=== PATIENT | female | born 1940 ===

== ENCOUNTER 2020-04-30 11:05 | Outpatient (CLI) | payer MEDICARE, SELFPAY ==
[2020-04-30 11:39] LABS: Basophils Absolute Auto 0.1 K/mm3 (0.0-0.1); Basophils Percent Auto 0.4 % (0.2-1.2); Eosinophils Absolute Auto 0.1 K/mm3 (0-0.3); Eosinophils Percent Auto 0.5 % (0-4.4); Hematocrit 41.7 % (37.0-47.0); Immature Granulocyte Percent A 0.6 % (0-0.5); Lymphocytes Absolute Auto 1.68 K/mm3 (0.9-3.2); Mean Corpuscular HGB Conc 33.6 g/dl (32-36); Mean Corpuscular Volume 89.5 fl (80-100); Mean Platelet Volume 9.1 fl (7.4-10.4); Monocytes Absolute Auto 1.1 K/mm3 (0.1-0.6); Monocytes Percent Auto 6.6 % (2.6-8.5); Neutrophils Absolute Auto 13.7 K/mm3 (1.3-6.7); Neutrophils Percent Auto 81.9 % (45.5-73.1); Platelet Count Result 393 k/mm3 (150-375); Red Blood Count 4.66 M/mm3 (4.2-5.4); White Blood Count 16.7 K/mm3 (4.5-10.0)
[2020-04-30 12:40] LABS: Alanine Aminotransferase 18 U/L (4-35); Albumin Level 4.4 g/dL (3.5-5.1); Alkaline Phosphatase 90 U/L (38-126); Anion Gap 15.9 mmol/L (7-16); Aspartate Amino Transferase 24 U/L (14-36); Bilirubin,Total 0.6 mg/dL (0.2-1.3); Blood Urea Nitrogen 23 mg/dL (7-17); CRP 2.8 mg/dL (<1.0); Calcium 9.7 mg/dL (8.4-10.2); Carbon Dioxide 25 mmol/L (22-30); Chloride 93 mmol/L (98-107); Estimated Glomerular Filt Rate > 60; Glucose 114 mg/dL (65-105); Potassium 3.9 mmol/L (3.4-5.0); Sodium 130 mmol/L (137-145)
[2020-04-30 12:57] LABS: Erythrocyte Sedimentation Rate 24 mm/hr (0-20)
== END 2020-04-30 11:06 | disposition home or self-care (01) ==
PROVIDERS: PCP Internal Medicine; Visit Provider Internal Medicine Hematology & Oncology
DX: D72.829 Elevated white blood cell count, unspecified (principal)
CPT/HCPCS: 36415; 80053; 85025; 85652; 86140; 88184; 88185

== ENCOUNTER 2020-12-13 10:05 | Outpatient (CLI) | payer MEDICARE, SELFPAY ==
[2020-12-13 10:19] LABS: Basophils Absolute Auto 0.1 K/mm3 (0.0-0.1); Basophils Percent Auto 0.7 % (0.2-1.2); Eosinophils Absolute Auto 0.2 K/mm3 (0-0.3); Eosinophils Percent Auto 1.6 % (0-4.4); Hemoglobin 13.8 g/dL (12.0-15.0); Immature Granulocyte Absolute 0.04 K/mm3 (0.00-0.031); Immature Granulocyte Percent A 0.4 % (0-0.5); Lymphocytes Absolute Auto 1.91 K/mm3 (0.9-3.2); Lymphocytes Percent Auto 18.2 % (18.3-44.2); Mean Corpuscular HGB Conc 32.9 g/dl (32-36); Mean Corpuscular Hemoglobin 29.9 pg (26-34); Mean Corpuscular Volume 91.1 fl (80-100); Mean Platelet Volume 9.2 fl (7.4-10.4); Monocytes Absolute Auto 0.8 K/mm3 (0.1-0.6); Monocytes Percent Auto 7.3 % (2.6-8.5); Neutrophils Absolute Auto 7.5 K/mm3 (1.3-6.7); Neutrophils Percent Auto 71.8 % (45.5-73.1); Platelet Count Result 341 k/mm3 (150-375); Red Blood Count 4.61 M/mm3 (4.2-5.4); Red Cell Distribution Width 14.9 % (11.5-14.5); White Blood Count 10.5 K/mm3 (4.5-10.0)
== END 2020-12-13 10:06 | disposition home or self-care (01) ==
LOC: ANHLAB 10:07
PROVIDERS: PCP Internal Medicine; Visit Provider Internal Medicine Hematology & Oncology
DX: D72.829 Elevated white blood cell count, unspecified (principal)
CPT/HCPCS: 36415; 85025

== ENCOUNTER 2021-12-10 10:01 | Outpatient (CLI) | payer MEDICARE, SELFPAY ==
[2021-12-10 10:24] LABS: Basophils Absolute Auto 0.1 K/mm3 (0.0-0.1); Basophils Percent Auto 0.4 % (0.2-1.2); Eosinophils Absolute Auto 0.2 K/mm3 (0-0.3); Hematocrit 43.3 % (37.0-47.0); Immature Granulocyte Absolute 0.08 K/mm3 (0.00-0.031); Immature Granulocyte Percent A 0.5 % (0-0.5); Lymphocytes Absolute Auto 1.26 K/mm3 (0.9-3.2); Lymphocytes Percent Auto 7.5 % (18.3-44.2); Mean Corpuscular HGB Conc 32.3 g/dl (32-36); Mean Corpuscular Hemoglobin 29.9 pg (26-34); Mean Corpuscular Volume 92.3 fl (80-100); Monocytes Absolute Auto 1.2 K/mm3 (0.1-0.6); Neutrophils Percent Auto 83.6 % (45.5-73.1); Platelet Count Result 375 k/mm3 (150-375); Red Blood Count 4.69 M/mm3 (4.2-5.4); Red Cell Distribution Width 14.2 % (11.5-14.5); White Blood Count 16.7 K/mm3 (4.5-10.0)
[2021-12-10 10:28] LABS: Blood Urea Nitrogen 16 mg/dL (8-26); Carbon Dioxide 24 mmol/L (22-30); Chloride 93 mmol/L (98-109); Estimated Glomerular Filt Rate 60; Glucose 109 mg/dL (70-105); Potassium 3.6 mmol/L (3.5-4.9); Sodium 131 mmol/L (138-146)
[2021-12-10 14:31] LABS: CRP 2.5 mg/dL (<1.0)
[2021-12-10 16:15] LABS: Erythrocyte Sedimentation Rate 17 mm/hr (0-20)
== END 2021-12-10 10:02 | disposition home or self-care (01) ==
PROVIDERS: PCP Internal Medicine; Visit Provider Internal Medicine Hematology & Oncology
DX: D72.829 Elevated white blood cell count, unspecified (principal)
CPT/HCPCS: 36415; 80048; 85025; 85652; 86140

== ENCOUNTER 2022-12-10 09:49 | Outpatient (CLI) | payer MEDICARE, SELFPAY ==
[2022-12-10 10:06] LABS: Basophils Absolute Auto 0.1 K/mm3 (0.0-0.1); Basophils Percent Auto 0.4 % (0.2-1.2); Eosinophils Absolute Auto 0.1 K/mm3 (0-0.3); Hemoglobin 12.3 g/dL (12.0-15.0); Immature Granulocyte Absolute 0.05 K/mm3 (0.00-0.031); Immature Granulocyte Percent A 0.4 % (0-0.5); Lymphocytes Absolute Auto 1.83 K/mm3 (0.9-3.2); Lymphocytes Percent Auto 14.3 % (18.3-44.2); Mean Corpuscular HGB Conc 31.5 g/dl (32-36); Mean Corpuscular Hemoglobin 24.8 pg (26-34); Mean Corpuscular Volume 78.8 fl (80-100); Mean Platelet Volume 9.2 fl (7.4-10.4); Monocytes Absolute Auto 0.8 K/mm3 (0.1-0.6); Neutrophils Absolute Auto 9.9 K/mm3 (1.3-6.7); Neutrophils Percent Auto 77.9 % (45.5-73.1); Platelet Count Result 402 k/mm3 (150-375); Red Blood Count 4.95 M/mm3 (4.2-5.4); Red Cell Distribution Width 23.8 % (11.5-14.5); White Blood Count 12.8 K/mm3 (4.5-10.0)
[2022-12-10 10:11] LABS: Blood Urea Nitrogen 16 mg/dL (8-26); Carbon Dioxide 31 mmol/L (22-30); Chloride 100 mmol/L (98-109); Estimated Glomerular Filt Rate 39; Glucose 104 mg/dL (70-105); Ionized Calcium (POC) 1.23 mmol/L (1.11-1.31); Potassium 4.5 mmol/L (3.5-4.9); Sodium 140 mmol/L (138-146)
[2022-12-10 13:42] LABS: Alanine Aminotransferase 10 U/L (6-35); Albumin Level 4.4 g/dL (3.5-5.1); Alkaline Phosphatase 95 U/L (38-126); Anion Gap 6 mmol/L (8-16); Aspartate Amino Transferase 32 U/L (14-36); Bilirubin,Total 0.6 mg/dL (0.2-1.3); Blood Urea Nitrogen 16 mg/dL (7-17); CRP 0.8 mg/dL (<1.0); Calcium 9.8 mg/dL (8.4-10.2); Carbon Dioxide 31 mmol/L (22-30); Chloride 99 mmol/L (98-107); Estimated Glomerular Filt Rate 48; Glucose 103 mg/dL (65-110); Potassium 4.6 mmol/L (3.4-5.0); Sodium 136 mmol/L (137-145)
[2022-12-10 14:02] LABS: Erythrocyte Sedimentation Rate 20 mm/hr (0-20)
== END 2022-12-10 09:50 | disposition home or self-care (01) ==
LOC: ANHLAB 09:52
PROVIDERS: PCP Family Medicine; Visit Provider Internal Medicine Hematology & Oncology
DX: D72.829 Elevated white blood cell count, unspecified (principal)
CPT/HCPCS: 36415; 80047; 80053; 85025; 85652; 86140

== ENCOUNTER 2023-12-11 10:07 | Outpatient (CLI) | payer MEDICARE, SELFPAY ==
[2023-12-11 10:24] LABS: Basophils Absolute Auto 0.1 K/mm3 (0.0-0.1); Basophils Percent Auto 0.8 % (0.2-1.2); Eosinophils Absolute Auto 0.3 K/mm3 (0-0.3); Eosinophils Percent Auto 2.3 % (0-4.4); Hematocrit 45.2 % (37.0-47.0); Immature Granulocyte Absolute 0.09 K/mm3 (0.00-0.031); Immature Granulocyte Percent A 0.6 % (0-0.5); Lymphocytes Absolute Auto 1.95 K/mm3 (0.9-3.2); Lymphocytes Percent Auto 13.4 % (18.3-44.2); Mean Corpuscular HGB Conc 33.2 g/dl (32-36); Mean Corpuscular Hemoglobin 30.7 pg (26-34); Mean Corpuscular Volume 92.4 fl (80-100); Mean Platelet Volume 9.2 fl (7.4-10.4); Monocytes Absolute Auto 0.8 K/mm3 (0.1-0.6); Monocytes Percent Auto 5.4 % (2.6-8.5); Neutrophils Absolute Auto 11.3 K/mm3 (1.3-6.7); Neutrophils Percent Auto 77.5 % (45.5-73.1); Platelet Count Result 435 k/mm3 (150-375); Red Blood Count 4.89 M/mm3 (4.2-5.4); Red Cell Distribution Width 14.7 % (11.5-14.5); White Blood Count 14.5 K/mm3 (4.5-10.0)
[2023-12-11 10:37] LABS: Blood Urea Nitrogen 16 mg/dL (8-26); Carbon Dioxide 27 mmol/L (22-30); Chloride 103 mmol/L (98-109); Estimated Glomerular Filt Rate 53; Potassium 4.3 mmol/L (3.5-4.9); Sodium 143 mmol/L (138-146)
[2023-12-11 10:38] LABS: Glucose 114 mg/dL (70-105); Ionized Calcium (POC) 1.22 mmol/L (1.11-1.31)
[2023-12-11 15:20] LABS: Alanine Aminotransferase 10 U/L (6-35); Albumin Level 4.1 g/dL (3.5-5.1); Alkaline Phosphatase 93 U/L (38-126); Anion Gap 7 mmol/L (8-16); Aspartate Amino Transferase 46 U/L (14-36); Bilirubin,Total 0.7 mg/dL (0.2-1.3); Blood Urea Nitrogen 16 mg/dL (7-17); Calcium 9.6 mg/dL (8.4-10.2); Carbon Dioxide 27 mmol/L (22-30); Chloride 106 mmol/L (98-107); Estimated Glomerular Filt Rate 53; Glucose 104 mg/dL (65-110); Potassium 4.4 mmol/L (3.4-5.0); Sodium 140 mmol/L (137-145)
== END 2023-12-11 10:08 | disposition home or self-care (01) ==
LOC: ANHLAB 10:10
PROVIDERS: PCP Family Medicine; Visit Provider Internal Medicine Hematology & Oncology
DX: D72.829 Elevated white blood cell count, unspecified (principal)
CPT/HCPCS: 36415; 80047; 80053; 85025

== ENCOUNTER 2024-12-12 09:37 | Outpatient (CLI) | payer MEDICARE, SELFPAY ==
[2024-12-12 09:55] LABS: Basophils Percent Auto 0.4 % (0.2-1.2); Eosinophils Absolute Auto 0.2 K/mm3 (0-0.3); Eosinophils Percent Auto 2.4 % (0-4.4); Hematocrit 42.8 % (37.0-47.0); Hemoglobin 13.8 g/dL (12.0-15.0); Immature Granulocyte Absolute 0.05 K/mm3 (0.00-0.031); Immature Granulocyte Percent A 0.5 % (0-0.5); Lymphocytes Percent Auto 17.2 % (18.3-44.2); Mean Corpuscular HGB Conc 32.2 g/dl (32-36); Mean Corpuscular Volume 86.8 fl (80-100); Mean Platelet Volume 9.6 fl (7.4-10.4); Monocytes Absolute Auto 0.8 K/mm3 (0.1-0.6); Monocytes Percent Auto 8.1 % (2.6-8.5); Neutrophils Absolute Auto 6.6 K/mm3 (1.3-6.7); Neutrophils Percent Auto 71.4 % (45.5-73.1); Platelet Count Result 358 k/mm3 (150-375); Red Blood Count 4.93 M/mm3 (4.2-5.4); Red Cell Distribution Width 16.1 % (11.5-14.5); White Blood Count 9.3 K/mm3 (4.5-10.0)
[2024-12-12 10:05] LABS: Blood Urea Nitrogen 22 mg/dL (8-26); Carbon Dioxide 28 mmol/L (22-30); Chloride 100 mmol/L (98-109); Estimated Glomerular Filt Rate 53; Glucose 94 mg/dL (70-105); Ionized Calcium (POC) 1.12 mmol/L (1.11-1.31); Potassium 3.6 mmol/L (3.5-4.9); Sodium 140 mmol/L (138-146)
--- OUTSIDE RECORDS SUMMARY | 2024-12-12 10:55 | XMS_ITS | Clinical Summary ---
Author Organization [address] Address [address] [place] [phone] Care Team Providers Care Receptionist Clerk Name Role Phone Suresh Garcia MD Primary Care Provider [phone] [phone] Allergies Active Allergy Reactions Criticality Noted Date Comments Atorvastatin Unknown,Muscle pain Medium 03/20/2016 Oxycodone Dizziness Low 05/26/2022 Rosuvastatin Unknown,Muscle pain Medium 03/20/2016 Sulfamethoxazole-Trimet hoprim Other (See comments) Low 02/09/2022 Patient said she felt funny when she took it. Medications irbesartan (AVAPRO) 300 mg tablet Take 300 mg by mouth daily 1 Active metoprolol tartrate (LOPRESSOR) 50 mg immediate release tablet Take 50 mg by mouth 2 (two) times a day 1 Active ezetimibe (ZETIA) 10 mg tablet Take 10 mg by mouth daily [address] (PROTONIX) 40 mg EC tablet Take 40 mg by mouth daily 1 Active furosemide (LASIX) 40 mg tablet Take 40 mg by mouth daily 1 Active cetirizine (ZyrTEC) 10 mg tablet Take 5 mg by mouth 2 (two) times a day Active butalbital-acet aminophen-caffe ine (FIORICET) 50-300-40 mg per capsule Take 1 capsule by mouth every 6 (six) hours as needed for headaches Active azelastine (ASTELIN) 137 mcg (0.1 %) nasal sprayIndication s:Seasonal Allergic Rhinitis Administer 2 sprays into each nostril 2 (two) times a day Use in each nostril as directed 30 mL 3 2 Active clopidogreL (PLAVIX) 75 mg tablet Take 75 mg by mouth daily 2 Active multivitamin-mi nerals-lutein tablet Take 1 tablet by mouth daily Active cyanocobalamin (Vitamin B-12) 500 mcg tabletIndicatio ns:Prevention of Vitamin B12 Deficiency Take 500 mcg by mouth daily Active cholecalciferol (VITAMIN D-3) 2000 unit capsule Take 2,000 Units by mouth daily Active amLODIPine (NORVASC) 10 mg tablet Take 1 tablet (10 mg total) by mouth daily 30 tablet 11 2 Active acetaminophen 500 mg capsule Take 2 capsules (1,000 mg total) by mouth every 8 (eight) hours 30 tablet 2 Active lidocaine (LIDODERM) 5 % Place 1 patch on the skin daily Remove & discard patch within 12 hours or as directed by MD. 30 patch 2 Active traMADoL (ULTRAM) 50 mg tablet Take 1 tablet (50 mg total) by mouth daily as needed for pain (prior to wound vac change) 5 tablet 2 Active Active Problems Problem Noted Date Diagnosed Date Cellulitis of left lower extremity 06/10/2022 Assessment & Plan (06/20/2022 12:34 PM CDT): P/w left leg wound. See media tab. No pain or tenderness noted. Mild bleeding noted from underlying hematoma. CT with findings of hematoma with possible superinfection. Leukocytosis of 13.1 on admit. No concern for left knee septic joint on joint studies. - surgery - hematoma evacuation/I&D on 06/12/2022, 06/15 - wound vac in place - Consulted wound care, managing wound vac, will take down w/ WTD dressing prior to d/c to SNF 06/20, vac to be restarted upon arrival to SNF - tramadol PRN for wound vac changes - pansensitive proteus and likely anaerobic gpc/gpb - CTX/flagyl-->augmentin per ID to complet 4 week course on 07/09 - darcy parapsilosis, will d/w ID - Started fluconazole 400mg qdaily (QTC 427) to complete 4 week course on 07/09 Hyponatremia 06/10/2022 Assessment & Plan (06/20/2022 12:35 PM CDT): Na of 125 on admission. History of sodium in 120s since April 2022. Likely combination of HCTZ use and possibly volume overload? Also hypochloremic. Improved since stopping HCTZ, but then downtrending starting 06/18, possibly 2/2 hypervolemia while off lasix - tsh, am cortisol is fine - will resume lasix 40mg daily- Na improved on lasix - monitor daily BMP Falls 06/10/2022 Assessment & Plan (06/16/2022 4:57 PM CDT): H/o mechanical falls. Had 3 falls in 3 months. Reports of balance issues, a part of it is likely from hyponatremia and LE edema. Most recent fall c/b knee wound now infected limiting her mobility. - Daughter says she really noticed a change 6-8 months ago, when her mother developed a shuffling gait and began to fall more frequently. She has been increasingly sedentary since then, spending most of her time in a recliner. - Has received home PT to work on balance since February 2021 - Neurology appointment scheduled for October - PT/OT: amenable to placement on d/w patient and daughter. - stop alprazolam Diastolic CHF 06/10/2022 Assessment & Plan (06/19/2022 4:36 PM CDT): Not in exacerbation. Takes lasix for B/L KYLER. Restarted lasix 06/19 COVID-19 06/10/2022 Assessment & Plan (06/11/2022 12:56 PM CDT): Tested positive on 06/10. Covid vaccinated and boosted x 1. Recently had COVID in late March (had mild symptoms). Currently is asymptomatic. - No therapies indicated since she is asymptomatic and is likely recovered. - Infection prevention took off precautions on 06/11, changed status to COVID recovered Lower extremity edema 06/10/2022 Assessment & Plan (06/19/2022 4:39 PM CDT): Chronic KYLER but has been sedentary for the past couple of weeks and is at risk of DVT. Previously cardiology concerned about lymphedema tarda. - Has been on lasix/hctz together since 2018. - bilateral LE duplex negative - Encourage leg elevation - Consult sent to lymphedema therapy team - restarted lasix 06/19 - noted RLE erythema, most likely 2/2 chronic venous stasis changes, already on broad abx coverage for LLE wound, so cellulitis is unlikely, will CTM Left shoulder pain 06/10/2022 Assessment & Plan (06/11/2022 12:58 PM CDT): Initially noticed when working with PT. Decreased ROM from pain. No loss of strength. 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 Statin intolerant. Gait abnormality 01/22/2022 Non-seasonal allergic rhinitis 03/05/2021 Balance problem 02/11/2021 Leukocytosis 05/16/2020 Assessment & Plan (06/19/2022 4:38 PM CDT): WBC 13-->16-->17 in setting of open wound on abx, likely 2/2 ongoing inflammation, no new sxs per pt - urinalysis not c/w infection 06/19 - monitor with daily CBC LUCI (obstructive sleep apnea) 10/29/2017 Assessment & Plan (06/10/2022 7:21 PM CDT): Inconsistently uses CPAP. SOB (shortness of breath) 04/14/2017 Dyslipidemia 04/13/2017 Excessive daytime sleepiness 04/13/2017 Chronic fatigue 03/16/2017 Edema 03/20/2016 Essential (primary) hypertension 03/20/2016 Assessment & Plan (06/10/2022 8:23 PM CDT): Takes amlodipine, hctz, irebesartan and metoprolol. Hold hctz for hyponatremia. - Continue amlodipine, irbesartan and metoprolol Hyperlipidemia, mixed 03/20/2016 Assessment & Plan (06/10/2022 7:23 PM CDT): Statin intolerant. Continue ezetimibe. Morbid obesity due to excess calories 03/20/2016 Immunizations Immunization Administration Dates Next Due Influenza, Unspecified 09/03/2018 Pfizer SARS-CoV-2 Monovalent Vaccination (12+ Yrs) PURPLE 07/25/2021,01/03/2021,12/13/2020 Tdap 02/09/2022 Surgical History Surgery Date Site/Laterality Comments SECTION TONSILLECTOMY CHOLECYSTECTOMY COLONOSCOPY CYST REMOVAL CARDIAC CATHETERIZATION ACHILLES TENDON REPAIR JOINT REPLACEMENT Right [place] ARTHRP KNE CONDYLE&PLATU MEDIAL&LAT COMPARTMENTS Left Medical History Medical History Date Comments Allergic rhinitis Cataract Hypertension HL (hearing loss) Social History Tobacco Use Types Packs/Day Years Used Date Smoking Tobacco: Never Smokeless Tobacco: Never Tobacco Cessation:Counseling Given: Not Answered AUDIT-C Answer Date Recorded Q1: How often do you have a drink containing alcohol? Never 06/15/2022 Q2: How many drinks containi ng alcohol do you have on a typical day when you are drinking? Patient does not drink Q3: How often do you have si x or more drinks on one occasion? Never 06/15/2022 PHQ-2 Answer Date Recorded PHQ-2 Total Score (If total score is 3 or more points, staff should administer the PHQ-9) 0 06/10/2022 Comments No Sex and Gender Information Value Date Recorded Sex Assigned at Not on file Legal Sex Female 8:21 AM CDT Gender Identity Not on file Sexual Orientation Not on file Obstetrics History Last Filed Vital Signs Vital Sign Reading Time Taken Comments Blood Pressure 131/56 06/20/2022 1:00 PM CDT Pulse 88 06/20/2022 1:00 PM CDT Temperature 36.4 C (97.6 F) 06/20/2022 1:00 PM CDT Respiratory Rate 18 06/20/2022 1:00 PM CDT Oxygen Saturation 95% 06/20/2022 1:00 PM CDT Inhaled Oxygen Concentration - - Weight 101.3 kg (223 lb 6.4 oz) 06/20/2022 6:00 AM CDT Height 154.9 cm (5' 0.98 ) 06/12/2022 1 2:44 PM CDT Body Mass Index 42.23 06/12/2022 12:44 PM CDT Plan of Treatment Health Maintenance Due Date Last Done Comments Osteoporosis Screening-Bone Density Scan 1940 Hepatitis B Screening 1958 Pneumococcal vaccine 65+ (1 of 1 - PCV) 1990 Zoster Vaccine (1 of 2) 1990 Well Visit 65+ 2005 Depression Screening 06/10/2023 06/10/2022, 06/10/20 22 Fall Risk Assessment 06/20/2023 06/20/2022 Covid-19 Vaccine ( season) 2024 07/25/2021, 01/03/2021, 12/13/2020 Influenza Vaccine (#1) 2024 09/03/2018 DTaP/Tdap/Td Vaccine (2 - Td or Tdap) 02/10/203205/2022 Insurance MEDICARE [facility] Member Subscriber Plan / Payer (Ef fective 2020-Present) Name:Lauro Dobson Relation to Subscriber:Self Name:Lauro Dobson Payer ID:[id number] Group ID:Not on file Type:COMMERCIAL Address: [address] [place] [id number] [facility] MEDICARE Advance Directives For more information, please contact: [phone] * Full Code (Latest Code Status on File) Date Activated Date Inactivated Comments 06/10/2022 8:14 PM 06/20/2022 6:37 PM Care Teams Receptionist Clerk Relationship Specialty Start Date End Date Suresh Garcia MD [address] [place], [place] [id number] PCP - General Family Medicine 06/10/22
--- OUTSIDE RECORDS SUMMARY | 2024-12-12 10:55 | XMS_ITS | Clinical Summary ---
Author Organization [facility] Brionna Mccracken Address [address] [facility] [place] [address] Care Team Providers Care Supervisor Cartography Name Role Phone Suresh Garcia MD Primary Care Provider [phone] Allergies Active Allergy Reactions Criticality Noted Date Comments Atorvastatin Unknown,Muscle Pain Low 03/20/2016 Rosuvastatin Unknown,Muscle Pain Low 03/20/2016 Medications amLODIPine (NORVASC) 5 mg tablet Take 5 mg by mouth daily. Active metoprolol tartrate (LOPRESSOR) 50 mg tablet Take 50 mg by mouth 2 times daily. Active ezetimibe (ZETIA) 10 mg tablet Take 10 mg by mouth daily. Active pantoprazole (PROTONIX) 40 mg Tablet, Delayed Release (E.C.) Take 40 mg by mouth daily. Active furosemide (LASIX) 40 mg tablet Take 40 mg by mouth daily. Active cetirizine (ZyrTEC) 10 mg tablet Take 10 mg by mouth daily. Active multivitamin (DAILY-BASILIO) tablet Take 1 Tablet by mouth daily. Active aspirin (ECOTRIN EC) 81 mg Tablet, Delayed Release (E.C.) Take 81 mg by mouth daily. Active ALPRAZolam (XANAX) 0.25 mg tablet Take 0.25 mg by mouth 3 times daily as needed for Anxiety. Active cholecalciferol , Vitamin D3, 50 mcg (2,000 unit) Tablet Take by mouth. Ac tive aspirin-caffein e-butalbital (FIORINAL) 325-40-50 mg capsule 1 Active azelastine (ASTELIN) 137 mcg/actuation nasal spray Administer 2 Sprays in each nostril 2 times daily. 1 Active carbidopa-levod opa (SINEMET) 25-100 mg tablet 3 Active losartan (COZAAR) 100 mg tablet Take 100 mg by mouth daily. 2 Active Active Problems Problem Noted Date Diagnosed Date Leukocytosis (leucocytosis) 05/16/2020 Encounters Date Type Department Care Team Description 12/12/2024 10:00 AM CDT Office Visit [facility] Oncology and Hematology - [place] [address] [place] [address] Didier Noland MD 11/22/2024 External Device Data [facility] ABSTRACTION Provider, Abstract 10/27/2024 External Device Data [facility] ABSTRACTION Provider, Abstract 10/26/2024 External Device Data [facility] ABSTRACTION Provider, Abstract 10/25/2024 External Device Data [facility] ABSTRACTION Provider, Abstract from Last 3 Months Family History Medical History Relation Name Comments Cancer Brother 1 Relation Name Status Comments Brother 1 Brother 2 Father Mother Social History Tobacco Use Types Packs/Day Years Used Date Smoking Tobacco: Never Smokeless Tobacco: Never Tobacco Cessation:Counseling Given: Not Answered Alcohol Use Standard Drinks/Week Comments Never 0 (1 standard drink = 0.6 oz pur e alcohol) Comments No Sex and Gender Information Value Date Recorded Sex Assigned at Not on file Legal Sex Female 9:53 AM CDT Gender Identity Not on file Sexual Orientation Not on file Last Filed Vital Signs Vital Sign Reading Time Taken Comments Blood Pressure 132/73 12/12/2024 10:16 AM CDT Pulse 60 12/12/2024 10:14 AM CDT Temperature 35.9 C (96.7 F) 12/12/2024 10:14 AM CDT Respiratory Rate 15 12/12/2024 10:1 4 AM CDT Oxygen Saturation 96% 12/12/2024 10: 14 AM CDT Inhaled Oxygen Concentration - - Weight 68 kg (150 lb) 12/12/2024 10:14 AM CDT Patient stated that this is the correct weight Height 154.9 cm (5' 1 ) 12/10/2021 10:3 7 AM MARKING MACHINE TENDER Body Mass Index 28.34 12/10/2021 10:37 AM MARKING MACHINE TENDER Plan of Treatment Health Maintenance Due Date Last Done Comments PNEUMOCOCCAL VACCINE 50+ YEA RS (1 of 2 - PCV) 1959 Traditional Medicare (ACO) A nnual Wellness Visit 1959 ZOSTER VACCINE (1 of 2) 1990 RSV VACCINE (60+ or ) (1 - 1-dose 75+ series) 2015 COVID-19 Vaccine (5 - 2023-2 5 season) 2024 07/25/2021, 01/03/2021, 12/13/2020, Additional history exists DTAP/TDAP/TD VACCINES (3 - T d or Tdap) 04/09/2034 04/09/2024, 02/09/2022 COLORECTAL SCREENING Discontinued 07/05/2022 Colorectal Cancer Screening Discontinued INFLUENZA VACCINE Completed 07/11/2024, 07/30/2022 OSTEOPOROSIS SCREENING Completed 11/03/2024, 2024 FIT-DNA Q 3 years Discontinued FIT/FOBT Q 1 year Discontinued Flex Sig/CT Colonography Q 5 years Discontinued Insurance MEDICARE PART A AND B [facility] [id number] [place] [id number] Care Teams Supervisor Cartography Relationship Specialty Start Date End Date Suresh Garcia MD [address] [place] [address] PCP - General Family Practice 12/11/23
--- OUTSIDE RECORDS SUMMARY | 2024-12-12 10:55 | XMS_ITS | Referral Summary ---
Author Organization [address] Address [address] [place] [address] Care Team Providers Care Finish Photographer Name Role Phone Suresh Garcia MD Primary Care Provider [phone] [phone] Allergies Active Allergy Reactions Criticality Noted Date [...] Vaccination (12+ Yrs) PURPLE 07/25/2021,01/03/2021,12/13/2020 Tdap 02/09/2022 Social History Tobacco Use Types Packs/Day Years [...] 06/12/2022 12:44 PM CDT Plan of Treatment Not on file Insurance MEDICARE [facility] MEDICARE Advance Directives For more information, please contact: [phone] * Full Code (Latest Code Status on File) Date Activated Date Inactivated Comments 06/10/2022 8:14 PM 06/20/2022 6:37 PM Care Teams Finish Photographer Relationship Specialty Start Date End Date Suresh Garcia MD [address] [place] [id number] PCP - General Family Medicine 06/10/22
--- OUTSIDE RECORDS SUMMARY | 2024-12-12 10:55 | XMS_ITS ---
Author Organization [facility] - [facility] Care Team Providers Care Lead Coater Name Role Phone Natalie Sandy Unavailable Unavailable Ernst Jorge Unavailable Unavailable Je Shelton Unavailable Unavailable Allergies and adverse reactions Code CodeSystem Substance Reaction Severity StartDate Concern Status Sulfamethoxazole /Trimeth oprim Unknown 06/20/2022 active 403992 RXNORM Rosuvastatin Unknown 06/20/2022 active 7804 RXNORM oxyCODONE Unknown 06/20/2022 active 74185 RXNORM Atorvastatin Unknown 06/20/2022 active Care Team Name Role Address Phone Organization Dates Je Shelton [place]CP [address] [place], [facility] [place] (Office): : [facility] 07/07/2022 - 09/07/2022 Natalie Sandy Attending Physician [address] [place] [address], [facility] [place] (Office): [facility] 07/07/2022 - 09/07/2022 Ernst Jorge Attending Physician [address] [place] [address], [facility] [place] (Office): [facility] 07/07/2022 - 09/07/2022 Immunizations Immunization Status Vaccine Details Vaccine Code CodeSystem Date Notes Influenza completed Influenza, high-dose, split virus, quadrivalent, injectable, preservative free lotNumber: [id number] expiry: 01/15/2023 Mfg: fluad quadrivalent Given 0.5 ml Right Deltoid intramuscularly 197 CVX created date: 2 consent date: 2 administe red date: 2 Educated by STEVE Spring /LAURENCE on 07/30/2022 Prevnar 13 normal pneumococcal conjugate vaccine, 13 valent 133 CVX created date: 2 consent date: 2 SARS-COV-2 (COVID-19) completed SARS-COV-2 (COVID-19) vaccine, D614, prefusion spike recombinant protein subunit (CoV2 preS dTM), AS03 adjuvant added, preservative free, 5mcg/0.5mL dose Mfg: Pfizer Step 2 of Multi-step with next step required 225 CVX created date: 2 administe red date: 1 SARS-COV-2 (COVID-19) completed SARS-COV-2 (COVID-19) vaccine, D614, prefusion spike recombinant protein subunit (CoV2 preS dTM), AS03 adjuvant added, preservative free, 5mcg/0.5mL dose Mfg: Pfizer Step 1 of Multi-step with next step required 225 CVX created date: 2 administe red date: 1 Pt was vaccinated prior to facility admit SARS-COV-2 (COVID-19 Booster) completed SARS-COV-2 (COVID-19) vaccine, mRNA, spike protein, LNP, preservative free, 100 mcg/0.5mL dose or 50 mcg/0.25mL dose Mfg: Pfizer 207 CVX created date: 2 administe red date: 0 Mental Status Section Date Assessment Total Score Description 09/07/2022 CAM 0 No delirium ind icated 07/09/2022 BIMS 15 cognitively int act CAM 0 No delirium ind icated PHQ-9 07 mild depression Problems Problem # Description Date of onset Resolved Date Code CodeSystem Concern Status 1 GASTROINTESTINAL HEMORRHAGE, UNSPECIFIED 07/07/[address] active 2 ALLERGIC RHINITIS, UNSPECIFIED 06/20/[address] active 3 BODY MASS INDEX [BMI ] 39.0-39.9, ADULT 06/20/[address] active 4 CHRONIC DIASTOLIC (CONGESTIVE) HEART FAILURE 06/20/[address] active 5 EDEMA, UNSPECIFIED 06/20/2022 645421274 SNOM[address] C T active 6 ESSENTIAL (PRIMARY) HYPERTENSION 06/20/[address] active 7 GASTRO-ESOPHAGEAL REFLUX DISEASE WITHOUT ESOPHAGITIS 06/20/[address] active 8 HYPERLIPIDEMIA, UNSPECIFIED 06/20/[address] active 9 HYPO-OSMOLALITY AND HYPONATREMIA 06/20/[address] active 10 LOCAL INFECTION OF THE SKIN AND SUBCUTANEOUS TISSUE, UNSPECIFIED 06/20/[address] active 11 OBSTRUCTIVE SLEEP APNEA (ADULT) (PEDIATRIC) 06/20/[address] active 12 PERSONAL HISTORY OF COVID-19 06/20/[address] active 13 PERSONAL HISTORY OF TRANSIENT ISCHEMIC ATTACK (TIA), AND CEREBRAL INFARCTION WITHOUT RESIDUAL DEFICITS 06/20/[address] active 14 PRESENCE OF LEFT ARTIFICIAL KNEE JOINT 06/20/[address] active 15 PRESENCE OF RIGHT ARTIFICIAL KNEE JOINT 06/20/[address] active 16 UNSPECIFIED OSTEOARTHRITIS, UNSPECIFIED SITE 06/20/[address] active 17 UNSPECIFIED SEVERE PROTEIN-CALORIE MALNUTRITION 06/20/[address] active Reason for Referral No Reasons for Referral Entered Social History Social History Observation Description Start Date End Date Code Code System Current Smoking Status Tobacco smoking consumption unknown 092221372 SNOMED CT Sex Assigned At Female 1940 [address]-1 [facility] Vital Signs Code Code System Vitals Name Values and Units Timing Information 97988-7 LOINC Pain Level Value=1.0 09/07/2022 9279-1 LOINC Respiratory Rate Value=20.0 Units=/m in 09/07/2022 8462-4 LOINC Blood Pressure-Diastolic Value=70 Un its=mmHg 09/07/2022 8480-6 LOINC Blood Pressure-Systolic Ztlbg=890 Un its=mmHg 09/07/2022 8310-5 [facility] Body Temperature Value=97.9 Units= F 09/07/2022 8867-4 [facility] Heart rate Value=76.0 Units=/min 01/2022 53732-5 [facility] O2 % BldC Oximetry Value=97.7 Units= % 09/07/2022 70817-1 [facility] Weight Bxpyb=148.5 Units=Lbs 12/2021 8302-2 [facility] Height Value=61.0 Units=Inches 06/23/2022
--- OUTSIDE RECORDS SUMMARY | 2024-12-12 10:55 | XMS_ITS | Encounter Summary ---
Author Organization [facility] Address [address] [place] [address] Care Team Providers Care Freelance Court Reporter Name Role Phone Suresh Garcia MD Primary Care Provider [phone] [phone] Encounter Details Date Type Department Care Team (Late st Contact Info) Description 12/12/2024 10:00 AM CDT Office Visit [facility] Oncology and Hematology - [place] [address] [facility] [address] [place] [address] Didier Noland MD [address] [facility] [address] [place] [address] Social History Tobacco Use Types Packs/Day Years [...] on file Sexual Orientation Not on file documented as of this encounter Last Filed Vital Signs Vital Sign Reading [...] that this is the correct weight Height - - Body Mass Index 28.34 12/10/2021 10:37 AM FLORAL DEPARTMENT SPECIALIST documented in this encounter Plan of Treatment Not on file documented as of this encounter Visit Diagnoses Not on filedocumented in this encounter Care Teams Freelance Court Reporter Relationship Specialty Start Date End Date Suresh Garcia MD [address] [place] [phone] PCP - General Family Practice 12/11/23 documented as of this encounter
== END 2024-12-12 09:38 | disposition home or self-care (01) ==
LOC: ANHLAB 09:38
PROVIDERS: PCP Physician Assistant Medical; Visit Provider Internal Medicine Hematology & Oncology
DX: D72.829 Elevated white blood cell count, unspecified (principal)
CPT/HCPCS: 36415; 80047; 85025